=== PATIENT | male | born 1945 | race Two or more races ===

== ENCOUNTER 2021-11-08 06:33 | Day surgery (SDC) | payer OTHER ==
[~2021-11-08] VITALS: Ht 170.2 cm; Wt 64.4 kg
[2021-11-08] VITALS (8 sets, daily range): BP systolic 100–117; BP diastolic 47–69
[~2021-11-08 06:33] MED LIST: AMLO-489 PO; ATOR40TA52 PO; FAMO40TA7 PO; GLIP-110 PO; METF-370 PO; METO25TA5 PO; TAM04C PO
[2021-11-08] MEDS ORDERED: IODIXANOL 320MG/ML 100ML BTL IV ONE (08:39)
[2021-11-08] MEDS ORDERED: LIDOCAINE 2%HCL (LOCAL ANESTH.) INJ 10ml MDV ONE (08:39)
[2021-11-08] MEDS ORDERED: fentaNYL CITRATE 100 MCG/2 ML VL ONE (08:43)
[2021-11-08] MEDS ORDERED: VERAPAMIL 2.5MG/ML INJ 2ML VIAL IV ONE (08:43)
[2021-11-08] MEDS ORDERED: HEPARIN SODIUM (PORCINE) 5000 UNITS/ML 1ML VIAL ONE (08:43)
[2021-11-08] MEDS ORDERED: ANGIOMAX 250 MG VIAL IV ONE (08:43)
[2021-11-08] MEDS ORDERED: MIDAZOLAM HCL 2MG/2ML 2ml VIAL (1mg/ml) ONE (08:44)
[2021-11-08] MEDS ORDERED: SODIUM CHL 0.9% 0 ML ONE (08:44)
== END 2021-11-08 11:36 | disposition home or self-care (01) ==
LOC: CATH 06:33
PROVIDERS: ATTEND Internal Medicine
DX: R94.39 Abnormal result of other cardiovascular function study (principal); I25.118 Atherosclerotic heart disease of native coronary artery with other forms of angina pectoris; I10 Essential (primary) hypertension; E11.9 Type 2 diabetes mellitus without complications; E78.00 Pure hypercholesterolemia, unspecified; Z82.49 Family history of ischemic heart disease and other diseases of the circulatory system; Z98.890 Other specified postprocedural states; Z79.899 Other long term (current) drug therapy; Z20.822 Contact with and (suspected) exposure to COVID-19
CPT/HCPCS: 93458; C1887; C1894; J1644; J2001; J2250; J3010; J7030; Q9967; U0003; 99152

== ENCOUNTER 2022-04-14 06:12 | Day surgery (SDC) | payer OTHER ==
[~2022-04-14] VITALS: Ht 170.2 cm; Wt 62.6 kg
[~2022-04-14 06:12] MED LIST changes: +FINA5TAB4 PO
[2022-04-14] MEDS ORDERED: ceFAZolin 1GM/50ML 100 ML IV ONE (06:57)
[2022-04-14] MEDS ORDERED: LIDOCAINE 2% (LOCAL ANESTH.) PF 5ml SDV ONE (07:01)
[2022-04-14] MEDS ORDERED: DexAMETHasone SOD PHOS 10MG/1ML VIAL INJ ONE (07:01)
[2022-04-14] MEDS ORDERED: PROPOFOL 10 MG/ML 20 ML IV ONE (07:01)
[2022-04-14] MEDS ORDERED: GLYCOPYRROLATE 0.2 MG/ML 1ML VIAL ONE (07:01)
[2022-04-14] MEDS ORDERED: ONDANSETRON HCL 4 MG/2 ML VIAL ONE (07:01)
[2022-04-14] MEDS ORDERED: PHENYLEPHRINE HCL 10 MG/ML VL ONE (07:35)
[2022-04-14] MEDS ORDERED: SODIUM CHLORIDE LOCK 20 ML ONE (07:35)
[2022-04-14] MEDS ORDERED: SODIUM CHLORIDE LOCK 10 ML ONE (07:44)
[2022-04-14] MEDS ORDERED: ePHEDrine SULFATE 50 MG/ML AMP ONE (07:51)
[2022-04-14] MEDS ORDERED: CALCIUM CHL(10%) 100MG/ML 10ML VIAL IV ONE (07:52)
[2022-04-14] MEDS ORDERED: VASOPRESSIN 20 UNIT/ML ONE (07:53)
[2022-04-14] MEDS ORDERED: fentaNYL CITRATE 100 MCG/2 ML VL ONE (07:56)
[2022-04-14 10:35] VITALS: BP 121/61
== END 2022-04-14 11:00 | disposition home or self-care (01) ==
LOC: SUR 06:12
PROVIDERS: ATTEND Urology
DX: N40.1 Benign prostatic hyperplasia with lower urinary tract symptoms (principal); N21.0 Calculus in bladder; R35.1 Nocturia; I10 Essential (primary) hypertension; E11.36 Type 2 diabetes mellitus with diabetic cataract; E78.00 Pure hypercholesterolemia, unspecified; Z79.899 Other long term (current) drug therapy; Z79.84 Long term (current) use of oral hypoglycemic drugs; Z20.822 Contact with and (suspected) exposure to COVID-19; Z98.890 Other specified postprocedural states
CPT/HCPCS: 52318; 52441; 52442; 82962; 88300; J0690; J1100; J2001; J2370; J2405; J2704; J3010; L8699; U0003